=== PATIENT | male | born 1950 | race Caucasian/White ===

== ENCOUNTER → 2016-07-26 | Outpatient (CLI) | payer BC, MEDICARE | END | disposition home or self-care (01) | LOC: CARD 10:00 | PROVIDERS: ATTEND Family Medicine | DX: M25.511 Pain in right shoulder (principal) | CPT/HCPCS: 95908 ==

== ENCOUNTER 2016-10-27 10:00 | Emergency (ER) | payer BC, MEDICARE ==
[~2016-10-27] VITALS: Ht 182.9 cm; Wt 96.4 kg
[2016-10-27 10:10] VITALS: BP 134/90
[2016-10-27] MEDS ORDERED: METF10002 PO (10:58)
[2016-10-27] MEDS ORDERED: SPIR25TA3 PO (10:58)
[2016-10-27] MEDS ORDERED: CARV6.252 PO (10:58)
[2016-10-27] MEDS ORDERED: LOSA25TA5 PO (10:58)
[2016-10-27] MEDS ORDERED: WARF5TAB7 PO (10:58)
[2016-10-27] MEDS ORDERED: ASPI-496 PO (10:58)
[2016-10-27] MEDS ORDERED: GABA300C10 PO (10:58)
[2016-10-27] MEDS ORDERED: TORS20TA2 PO (10:58)
[2016-10-27] MEDS ORDERED: INSU100V13 SQ (10:58)
[2016-10-27] MEDS ORDERED: ATOR40TA78 PO (10:58)
== END 2016-10-27 12:13 | disposition home or self-care (01) ==
LOC: ED 11:53
DX: S92.355A Nondisplaced fracture of fifth metatarsal bone, left foot, initial encounter for closed fracture (principal); E11.9 Type 2 diabetes mellitus without complications; W22.03XA Walked into furniture, initial encounter; Y93.89 Activity, other specified; Y99.8 Other external cause status; Y92.009 Unspecified place in unspecified non-institutional (private) residence as the place of occurrence of the external cause
CPT/HCPCS: 99284